=== PATIENT | male | born 1965 | race Two or more races ===

== ENCOUNTER 2023-04-02 20:22 | Inpatient (IN) | payer MEDICAID, OTHER ==
[~2023-04-02] VITALS: Ht 167.6 cm; Wt 97.0 kg
[2023-04-02] MEDS ORDERED: ACETAMINOPHEN 325 MG TAB PO ONE (21:15)
[2023-04-03] MEDS ORDERED: SODIUM CHLORIDE 0.9% 2,500 ML IV ONE (02:30)
[2023-04-03] MEDS ORDERED: AZITHROMYCIN 250 MG TAB PO ONE (02:45)
[2023-04-03] MEDS ORDERED: cefTRIAXone SOD 1,000 MG VL IV ONE (02:45)
[2023-04-03 02:59] LABS: Basophils # (auto) 0 10 ^3/uL (0-0.2); Basophils % (auto) 0.3 % (0.0-2.0); Eosinophils # (auto) 0 10 ^3/uL (0-0.8); Eosinophils % (auto) 0.2 % (0.0-7.0); Hematocrit 37.8 % (41.0-53.0); Hemoglobin 12.9 g/dL (13.5-17.5); Lymphocytes % (auto) 6.1 % (10.0-50.0); Monocytes # (auto) 1.7 10 ^3/uL (0-1.3); Monocytes % (auto) 10.3 % (0.0-12.0); Neutrophils # (auto) 13.8 10 ^3/uL (1.6-8.6); Neutrophils % (auto) 83.1 % (37.0-80.0); Red Blood Cells 4.16 10^6/uL (4.5-5.90); Red Cell Distribution Width 13.5 % (11.8-14.3); White Blood Cell 16.6 10^3/uL (4.4-10.8)
[2023-04-03 03:15] LABS: Albumin 1.8 g/dL (3.4-5.0); BUN/Creatinine Ratio 21.8 (10.0-20.0); Calcium 7.8 mg/dL (8.5-10.1); Potassium 3.7 mmol/L (3.5-5.1)
[2023-04-03 03:18] LABS: Bilirubin, Total 1.6 mg/dL (0.2-1.0); Total Protein 5.7 g/dL (6.4-8.2)
[2023-04-03] MEDS ORDERED: ACETAMINOPHEN 325 MG TAB PO PRN (04:15)
[2023-04-03] MEDS ORDERED: TEMAZEPAM 15 MG CAP PO PRN (04:15)
[2023-04-03] MEDS ORDERED: ONDANSETRON HCL 4 MG/2 ML VIAL IV PRN (04:15)
[2023-04-03] MEDS: AZITHROMYCIN 500MG/ 250ML 250 ML IV SCH ×2 (04:34→22:00)
[2023-04-03] MEDS: cefTRIAXone 1GM/50ML D5W 50 ML IV SCH ×2 (04:34→21:00)
[2023-04-03] MEDS: SODIUM CHLORIDE 0.9% 1,000 ML IV SCH ×2 (04:34→17:32)
[2023-04-03 09:36] VITALS: BP 96/69
[2023-04-03] MEDS: PANTOPRAZOLE 40 MG TAB PO SCH (10:32)
[2023-04-03] MEDS: ENOXAPARIN SOD 40 MG/0.4 ML SYRINGE SC SCH (10:32)
[2023-04-03] MEDS ORDERED: SODIUM CHLORIDE 0.9% 500 ML IV ONE (11:55)
[2023-04-03] MEDS ORDERED: MIDODRINE HCL 10 MG TAB PO PRN (12:15)
[2023-04-03 13:00] VITALS: BP 86/54
[2023-04-03 16:37] VITALS: BP 96/64
[2023-04-03 22:00] VITALS: BP 105/67
[2023-04-04] MEDS ORDERED: HYDROcodone-ACET 5/325MG TAB PO ONE (02:45)
[2023-04-04 05:00] VITALS: BP 100/69
[2023-04-04 05:55] LABS: Hematocrit 42.1 % (41.0-53.0); Hemoglobin 14.5 g/dL (13.5-17.5); Mean Corpuscular Hemoglobin 31.6 pg (28.0-32.0); Mean Corpuscular Hgb Conc. 34.5 g/dL (32.0-36.0); Mean Corpuscular Volume 91.8 fL (80.0-100.0); Red Blood Cells 4.58 10^6/uL (4.5-5.90); Red Cell Distribution Width 14.1 % (11.8-14.3); White Blood Cell 11.1 10^3/uL (4.4-10.8)
[2023-04-04 06:00] LABS: Basophils % (manual) 0 (0.0-2.0); Eosinophils % (manual) 0 (0-7); Metamyelocytes % 0; Myelocytes % 0; Promyelocytes % 0; Reactive Lymphocytes 0
[2023-04-04 06:01] LABS: Potassium 3.9 mmol/L (3.5-5.1)
[2023-04-04 06:08] LABS: Albumin 2.1 g/dL (3.4-5.0); BUN/Creatinine Ratio 14.3 (10.0-20.0); Bilirubin, Total 1.2 mg/dL (0.2-1.0); Calcium 7.9 mg/dL (8.5-10.1); Total Protein 6.3 g/dL (6.4-8.2)
[2023-04-04] MEDS: SODIUM CHLORIDE 0.9% 1,000 ML IV SCH ×2 (06:17→20:15)
[2023-04-04 07:57] LABS: Band Neutrophils % (manual) 1; Blast Cells 1; Lymphocytes % (manual) 3 (10.0-50.0); Monocytes % (manual) 7 (0-12)
[2023-04-04] MEDS: PANTOPRAZOLE 40 MG TAB PO SCH (08:53)
[2023-04-04] MEDS: ENOXAPARIN SOD 40 MG/0.4 ML SYRINGE SC SCH (08:56)
[2023-04-04 09:00] VITALS: BP 106/72
[2023-04-04 12:51] VITALS: BP 127/77
[2023-04-04 13:13] LABS: Hepatitis C Antibody Negative (Negative)
[2023-04-04 17:00] VITALS: BP 123/71
[2023-04-04] MEDS: cefTRIAXone 1GM/50ML D5W 50 ML IV SCH (21:00)
[2023-04-04 22:00] VITALS: BP 100/67
[2023-04-04] MEDS: AZITHROMYCIN 500MG/ 250ML 250 ML IV SCH (22:20)
[2023-04-05 05:00] VITALS: BP 106/69
[2023-04-05 09:00] VITALS: BP 123/76
[2023-04-05] MEDS: ENOXAPARIN SOD 40 MG/0.4 ML SYRINGE SC SCH (09:12)
[2023-04-05] MEDS: PANTOPRAZOLE 40 MG TAB PO SCH (09:12)
[2023-04-05 13:00] VITALS: BP 106/70
[2023-04-05] MEDS ORDERED: AZIT-81 PO (14:45)
[2023-04-05 14:51] VITALS: BP 122/75
[2023-04-05 17:00] VITALS: BP 115/76
== END 2023-04-05 17:38 | disposition home or self-care (01) | DRG 871 ==
LOC: ER 20:25 → OVERFLOW 04-03 04:02 → WEST WING 04-03 09:25
PROVIDERS: ADMIT Nurse Practitioner; ATTEND Internal Medicine
DX: A41.9 Sepsis, unspecified organism (principal); J15.6 Pneumonia due to other Gram-negative bacteria; E44.0 Moderate protein-calorie malnutrition; Z20.822 Contact with and (suspected) exposure to COVID-19; Z68.34 Body mass index [BMI] 34.0-34.9, adult
CPT/HCPCS: 36415; 71045; 80053; 83605; 85007; 85025; 85027; 86803; 87040; 87340; 87426; 87804; 99291; G0378; J0696